=== PATIENT | female | born 1995 | race Caucasian/White ===

== ENCOUNTER 2016-09-04 22:43 | Emergency (ER) | payer OTHER ==
[~2016-09-04] VITALS: Ht 160 cm; Wt 47.0 kg
[~2016-09-04 22:43] MED LIST: CIPR500T4 PO; LORTA5 PO; MOBI15TA PO
[2016-09-04 22:44] VITALS: BP 128/76; PULSE 106; RESP 16; TEMP 98; O2SAT 97
[2016-09-05] MEDS ORDERED: SODIUM CHLOR 0.9% 1000 ML INJ 1,000 ML IV SCH (00:30)
[2016-09-05] MEDS ORDERED: SODIUM CHLORIDE 0.9% FLUSH 5 ML FLUSH IVF PRN (00:30)
--- NOTE | 2016-09-05 00:35 | RADRPT ---
EXAM DATE/TIME: 09/05/2016 00:31 [facility] COMPARISON: No previous studies available for comparison. INDICATIONS : Shortness of breath. MEDICAL HISTORY : None. SURGICAL HISTORY : None. ENCOUNTER: Initial ACUITY: 1 day PAIN SCORE: 0/10 LOCATION: Bilateral chest FINDINGS: A single view of the chest demonstrates the lungs to be symmetrically aerated without evidence of mas s, infiltrate or effusion. The cardiomediastinal contours are unremarkable. Osseous structures are intact. CONCLUSION: Normal examination. Navjot Barriga MD on September 05, 2016 at 0:33 Board Certified Radiologist. This report was verified electronically.
[2016-09-05 00:39] VITALS: RESP 19; O2SAT 99
[2016-09-05] MEDS ORDERED: VENTAER INH (00:41)
[2016-09-05] MEDS ORDERED: MONT5CHW5 CHEW (00:41)
[2016-09-05 00:47] LABS: BASOPHIL % 0.4 % (0.0-2.0); EOSINOPHIL # 0.7 TH/MM3 (0-0.4); EOSINOPHIL % 8.4 % (0.0-4.0); HEMATOCRIT 41.2 % (35.0-46.0); HEMO FLAGS DIFF FINAL; LYMPH % 43.3 % (9.0-44.0); LYMPHOCYTE # 3.4 TH/MM3 (1.0-4.8); MEAN CORPUSCULAR HEMOGLOBIN 30.3 PG (27.0-34.0); MEAN CORPUSCULAR HGB CONC 34.8 % (32.0-36.0); MONO % 9.3 % (0.0-8.0); NEUT % 38.6 % (16.0-70.0); PLATELET COUNT 170 TH/MM3 (150-450); RED BLOOD COUNT 4.73 MIL/MM3 (4.00-5.30); RED CELL DISTRIBUTION WIDTH 12.6 % (11.6-17.2); WHITE BLOOD COUNT 7.8 TH/MM3 (4.0-11.0)
[2016-09-05 01:12] LABS: ALT (GPT) 34 U/L (10-53); ANION GAP 5 MEQ/L (5-15); AST (GOT) 17 U/L (15-37); BICARBONATE 31.3 MEQ/L (21.0-32.0); BLOOD UREA NITROGEN 10 MG/DL (7-18); CHLORIDE 106 MEQ/L (98-107); GLOMERULAR FILTRATION RATE 77 ML/MIN (>89); SODIUM (NA) 142 MEQ/L (136-145)
[2016-09-05 01:16] LABS: BACTERIA, URINE RARE /hpf; BLOOD, URINE NEG (NEG); COMMENT (UR) CULT NOT INDICATED; CULTURE IF INDICATED CULT NOT INDICATED; GLUCOSE,URINE NEG (NEG); KETONE, URINE NEG (NEG); NITRITE,URINE NEG (NEG); SQUAMOUS EPITHELIAL CELL URINE 2 /hpf (0-5); URINE COLOR YELLOW (YELLW/STRAW)
[2016-09-05 01:20] LABS: ALKALINE PHOSPHATASE 69 U/L (45-117); TOTAL BILIRUBIN ADULT 0.2 MG/DL (0.2-1.0)
--- NOTE | 2016-09-05 01:46 | PD ---
HPI Chief Complaint: Dizziness Time Seen by Provider: 00:14 Travel History International Travel<30 days: No Contact w/Intl Traveler<30days: No Traveled to known affect area: No History of Present Illness HPI This is a 21-year-old female who presents to the emergency department reporting weakness, left been going on for several weeks, worse with exertion, improved with rest. She feels like she is not able to exert herself without getting short of breath and exhausted. She's had less energy than normal. She says over the past 2 days she started to have some intermittent chest tightness in the left side of her chest, nonradiating, associated with more shortness of breath and more fatigued. Patient has no primary care physician but does have an appointment to establish with one aunt have or eighth. Her mom has a history of iron deficiency. She does report she has heavy menstrual cycles. PFSH Past Medical History Asthma: Yes Diminished Hearing: No Respiratory: Yes (ASTHMA) ?: Not LMP: 08/25/16 : 0 Para: 0 Past Surgical History Tonsillectomy: Yes Social History Alcohol Use: No Tobacco Use: No Substance Use: No Allergies-Medications (Allergen,Severity, Reaction): Coded Allergies: Nut Tree (Verified Allergy, Severe, SOB, 09/04/16) Peanut (Verified Allergy, Severe, SOB, 09/04/16) Gluten (Verified Allergy, Intermediate, STOMACH PAIN SKIN BLISTERS, ) Egg Allergy (Unverified Allergy, Unknown, 09/04/16) Reported Meds & Prescriptions Reported Meds & Active Scripts Active Reported Ventolin Hfa 18 GM Inh (Albuterol Sulfate) 90 Mcg/Act Aer 2 Puff INH Q4H PRN Montelukast (Montelukast Sodium) 5 Mg Chew 5 Mg CHEW HS Review of Systems Except as stated in HPI: all other systems reviewed are Neg Physical Exam Narrative GENERAL: Pale, thin, chronically unwell-appearing SKIN: Warm and dry. HEAD: Atraumatic. Normocephalic. EYES: Pupils equal and round. No injection or drainage. ENT: Moist mucous membranes NECK: Trachea midline. CARDIOVASCULAR: Regular rate and rhythm. No murmur appreciated. RESPIRATORY: Clear to auscultation. Breath sounds equal bilaterally. GASTROINTESTINAL: Abdomen soft, non-tender, nondistended. MUSCULOSKELETAL: No obvious deformities. NEUROLOGICAL: Awake and alert. No obvious cranial nerve deficits. Moving all extremities. PSYCHIATRIC: Appropriate mood and affect; insight and judgment normal. Data Data Last Documented VS Vital Signs Date Time Temp Pulse Resp B/P Pulse Ox O2 Delivery O2 Flow Rate FiO2 09/05/16 00:39 19 99 Room Air 09/04/16 22:44 98.0 106 128/76 Orders Electrocardiogram (09/04/16 23:08) Complete Blood Count With Diff (09/05/16 00:21) Comprehensive Metabolic Panel (09/05/16 00:21) B-Type Natriuretic Peptide (09/05/16 00:21) D-Dimer (09/05/16 00:21) Troponin I (09/05/16 00:21) Urinalysis - C+S If Indicated (09/05/16 00:21) Iv Access Insert/Monitor (09/05/16 00:21) Ecg Monitoring (09/05/16 00:21) Oximetry (09/05/16 00:21) Oxygen Administration (09/05/16 00:21) Chest, Single Ap (09/05/16 00:21) Sodium Chloride 0.9% Flush (Ns Flush) (09/05/16 00:30) Thyroid Stimulating Hormone (09/05/16 00:21) Sodium Chlor 0.9% 1000 Ml Inj (Ns 1000 M (09/05/16 00:30) Ed Urine Pregnancytest Poc (09/05/16 00:25) Labs Laboratory Tests Test 09/05/16 09/05/16 00:29 01:06 White Blood Count 7.8 TH/MM3 Red Blood Count 4.73 MIL/MM3 Hemoglobin 14.3 GM/DL Hematocrit 41.2 % Mean Corpuscular Volume 87.0 FL Mean Corpuscular Hemoglobin 30.3 PG Mean Corpuscular Hemoglobin 34.8 % Concent Red Cell Distribution Width 12.6 % Platelet Count 170 TH/MM3 Mean Platelet Volume 11.0 FL Neutrophils (%) (Auto) 38.6 % Lymphocytes (%) (Auto) 43.3 % Monocytes (%) (Auto) 9.3 % Eosinophils (%) (Auto) 8.4 % Basophils (%) (Auto) 0.4 % Neutrophils # (Auto) 3.0 TH/MM3 Lymphocytes # (Auto) 3.4 TH/MM3 Monocytes # (Auto) 0.7 TH/MM3 Eosinophils # (Auto) 0.7 TH/MM3 Basophils # (Auto) 0.0 TH/MM3 CBC Comment DIFF FINAL Differential Comment D-Dimer Quantitative (PE/DVT) LESS THAN 0.19 MG/L FEU Sodium Level 142 MEQ/L Potassium Level 4.0 MEQ/L Chloride Level 106 MEQ/L Carbon Dioxide Level 31.3 MEQ/L Anion Gap 5 MEQ/L Blood Urea Nitrogen 10 MG/DL Creatinine 0.91 MG/DL Estimat Glomerular Filtration 77 ML/MIN Rate Random Glucose 81 MG/DL Calcium Level 8.5 MG/DL Total Bilirubin 0.2 MG/DL Aspartate Amino Transf 17 U/L (AST/SGOT) Alanine Aminotransferase 34 U/L (ALT/SGPT) Alkaline Phosphatase 69 U/L Troponin I LESS THAN 0.02 NG/ML B-Type Natriuretic Peptide LESS THAN 2 PG/ML Total Protein 6.9 GM/DL Albumin 4.0 GM/DL Thyroid Stimulating Hormone 2.600 uIU/ML 3rd Gen Urine Color YELLOW Urine Turbidity HAZY Urine pH 7.0 Urine Specific [place] 1.017 Urine Protein NEG mg/dL Urine Glucose (UA) NEG mg/dL Urine Ketones NEG mg/dL Urine Occult Blood NEG Urine Nitrite NEG Urine Bilirubin NEG Urine Urobilinogen LESS THAN 2.0 MG/DL Urine Leukocyte Esterase NEG Urine RBC LESS THAN 1 /hpf Urine WBC 1 /hpf Urine Squamous Epithelial 2 /hpf Cells Urine Amorphous Sediment RARE Urine Bacteria RARE /hpf Microscopic Urinalysis Comment CULT NOT INDICATED MDM Medical Decision Making Medical Screen Exam Complete: Yes Emergency Medical Condition: Yes Interpretation(s) Afebrile, mild tachycardia, normotensive No leukocytosis Electrolytes are reassuring Troponin is normal TSH is normal BNP is normal D-dimer is normal Chest x-ray: No acute process Differential Diagnosis Arrhythmia, acute coronary syndrome, pneumonia, pulmonary embolism, hypothyroidism, anemia Narrative Course This is a 21-year-old female who presents to the emergency department with worsening fatigue and generalized weakness. She is chronically ill-appearing on exam and she is very thin. She is placed on a monitor and an IV was established. Labs were obtained which were all reassuring including a normal chest x-ray. I don't suspect an acute emergent etiology of the patient's symptoms but I do suspect that she has an underlying chronic medical illness. She will follow up with her primary care physician in 2 weeks and I did provide her with copies of her blood work. I think she is safe for an outpatient evaluation. Diagnosis Primary Impression: Weakness Patient Instructions: General Instructions Additional Instructions: If you develop severe chest pain, shortness of breath, sweating, lightheadedness , dizziness or difficulty breathing return to the emergency department immediately. Followup with your primary care physician in 2-3 days if your symptoms are not resolved. Med/Other Pt SpecificInfo: No Change to Meds Disposition: 01 DISCHARGE HOME Condition: Stable Cindy Hogue MD Sep 05, 2016 01:46
--- NOTE | 2016-09-05 16:27 | EKG ---
Date Performed: 09/04/2016 Time Performed: 23:16:19 PTAGE: 21 years EKG: Sinus rhythm NORMAL ECG NO PREVIOUS TRACING DOCTOR: Lopez Houston Interpretating Date/Time 09/05/2016 16:25:23
== END 2016-09-05 02:09 | disposition home or self-care (01) ==
LOC: NEPE 22:43
DX: R53.1 Weakness (principal); R06.02 Shortness of breath; R07.89 Other chest pain
CPT/HCPCS: 71010; 80053; 81001; 83880; 84443; 84484; 84703; 85025; 85379; 93005; 99285; J7030

== ENCOUNTER 2017-09-16 16:07 | Emergency (ER) | payer OTHER ==
[~2017-09-16] VITALS: Ht 160 cm; Wt 55.0 kg
[~2017-09-16 16:07] MED LIST changes: -CIPR500T4 PO; -LORTA5 PO; -MOBI15TA PO; +MONT5CHW5 CHEW; +VENTAER INH
[2017-09-16 16:08] VITALS: BP 147/62; PULSE 88; RESP 18; TEMP 98.6; O2SAT 100
[2017-09-16 17:04] LABS: AUTOMATED NEUTROPHIL # 6.2 TH/MM3 (1.8-7.7); BASOPHIL % 0.4 % (0.0-2.0); EOSINOPHIL # 0.4 TH/MM3 (0-0.4); EOSINOPHIL % 4.4 % (0.0-4.0); HEMATOCRIT 41.2 % (35.0-46.0); HEMOGLOBIN 14.1 GM/DL (11.6-15.3); LYMPH % 20.9 % (9.0-44.0); LYMPHOCYTE # 1.9 TH/MM3 (1.0-4.8); MEAN CELL VOLUME 87.5 FL (80.0-100.0); MEAN CORPUSCULAR HGB CONC 34.2 % (32.0-36.0); MEAN PLATELET VOLUME 9.8 FL (7.0-11.0); MONO % 6.7 % (0.0-8.0); MONOCYTE # 0.6 TH/MM3 (0-0.9); NEUT % 67.6 % (16.0-70.0); PLATELET COUNT 215 TH/MM3 (150-450); RED BLOOD COUNT 4.71 MIL/MM3 (4.00-5.30); WHITE BLOOD COUNT 9.2 TH/MM3 (4.0-11.0)
--- NOTE | 2017-09-16 17:08 | RADRPT ---
EXAM DATE/TIME: 09/16/2017 16:34 [facility] COMPARISON: No previous studies available for comparison. INDICATIONS : Chest pain. MEDICAL HISTORY : Asthma. SURGICAL HISTORY : None. ENCOUNTER: Initial ACUITY: 1 day PAIN SCORE: 5/10 LOCATION: Bilateral chest FINDINGS: PA and lateral views of the chest demonstrate the lungs to be symmetrically aerated without evidence of mass, infiltrate or effusion. The cardiomediastinal contours are unremarkable. Osseous structure s are intact. CONCLUSION: No acute disease. Rogelio Fischer MD on September 16, 2017 at 17:06 Board Certified Radiologist. This report was verified electronically.
[2017-09-16 17:21] LABS: BLOOD UREA NITROGEN 12 MG/DL (7-18); CALCIUM 8.5 MG/DL (8.5-10.1); CHLORIDE 105 MEQ/L (98-107); CREATININE 0.81 MG/DL (0.50-1.00); GLOMERULAR FILTRATION RATE 87 ML/MIN (>89); GLUCOSE,RANDOM 95 MG/DL (74-106); MAGNESIUM 2.4 MG/DL (1.5-2.5); SODIUM (NA) 139 MEQ/L (136-145)
[2017-09-16 17:24] LABS: TROPONIN I LESS THAN 0.02 NG/ML (0.02-0.05)
--- NOTE | 2017-09-16 20:33 | PD ---
HPI Chief Complaint: Chest Pain Time Seen by Provider: 20:20 Travel History International Travel<30 days: No Contact w/Intl Traveler<30days: No Traveled to known affect area: No History of Present Illness HPI 22-year-old female here for evaluation of chest pain, shortness of breath, and palpitations. Patient reports his symptoms started yesterday. She had flulike symptoms about a week ago. She is having intermittent episodes of chest heaviness and sharp substernal chest pains associated with shortness of breath. She states that this is worse with exertion. She has history of asthma and takes albuterol. She denies any personal history of cardiac disease per she is a nonsmoker. No paresthesias or motor deficits. States that there is significant family history of cardiac disease in her father's side of the family. She is not on control. No recent travel or immobilization. PFSH Past Medical History Asthma: Yes Diminished Hearing: No Respiratory: Yes (ASTHMA) ?: Not : 0 Para: 0 Past Surgical History Tonsillectomy: Yes Social History Alcohol Use: No Tobacco Use: No Substance Use: No Allergies-Medications (Allergen,Severity, Reaction): Coded Allergies: ipratropium (Unverified Allergy, Severe, SOB, 09/16/17) tree nut (Unverified Allergy, Severe, SOB, 09/16/17) gluten (Unverified Allergy, Intermediate, STOMACH PAIN SKIN BLISTERS, ) Reported Meds & Prescriptions Reported Meds & Active Scripts Active Reported Ventolin Hfa 18 GM Inh (Albuterol Sulfate) 90 Mcg/Act Aer 2 Puff INH Q4H PRN Montelukast (Montelukast Sodium) 5 Mg Chew 5 Mg CHEW HS Review of Systems Except as stated in HPI: all other systems reviewed are Neg Physical Exam Narrative GENERAL: Well-developed, well-nourished, comfortable, no apparent distress. SKIN: Focused skin assessment warm/dry. HEAD: Atraumatic. Normocephalic. EYES: Pupils equal and round. No scleral icterus. No injection or drainage. ENT: Mucous membranes pink and moist. NECK: Trachea midline. No JVD. CARDIOVASCULAR: Regular rate and rhythm. No murmur appreciated. RESPIRATORY: No accessory muscle use. Clear to auscultation. Breath sounds equal bilaterally. GASTROINTESTINAL: Abdomen soft, non-tender, nondistended. MUSCULOSKELETAL: No obvious deformities. No clubbing. No cyanosis. No edema. NEUROLOGICAL: Awake and alert. No obvious cranial nerve deficits. Motor grossly within normal limits. Normal speech. PSYCHIATRIC: Appropriate mood and affect; insight and judgment normal. Data Data Last Documented VS Vital Signs Date Time Temp Pulse Resp B/P (MAP) Pulse Ox O2 Delivery O2 Flow Rate FiO2 09/16/17 20:42 92 18 122/69 (86) 98 Room Air 09/16/17 16:08 98.6 Orders Orders Electrocardiogram (09/16/17 16:17) Basic Metabolic Panel (Bmp) (09/16/17 16:17) Ckmb (Isoenzyme) Profile (09/16/17 16:17) Complete Blood Count With Diff (09/16/17 16:17) Magnesium (Mg) (09/16/17 16:17) Troponin I (09/16/17 16:17) Chest, Pa & Lat (09/16/17 16:17) D-Dimer (09/16/17 20:23) Ed Urine Pregnancytest Poc (09/16/17 20:26) Labs Laboratory Tests Test 09/16/17 16:40 09/16/17 20:45 White Blood Count 9.2 TH/MM3 Red Blood Count 4.71 MIL/MM3 Hemoglobin 14.1 GM/DL Hematocrit 41.2 % Mean Corpuscular Volume 87.5 FL Mean Corpuscular Hemoglobin 30.0 PG Mean Corpuscular Hemoglobin Concent 34.2 % Red Cell Distribution Width 13.0 % Platelet Count 215 TH/MM3 Mean Platelet Volume 9.8 FL Neutrophils (%) (Auto) 67.6 % Lymphocytes (%) (Auto) 20.9 % Monocytes (%) (Auto) 6.7 % Eosinophils (%) (Auto) 4.4 % Basophils (%) (Auto) 0.4 % Neutrophils # (Auto) 6.2 TH/MM3 Lymphocytes # (Auto) 1.9 TH/MM3 Monocytes # (Auto) 0.6 TH/MM3 Eosinophils # (Auto) 0.4 TH/MM3 Basophils # (Auto) 0.0 TH/MM3 CBC Comment DIFF FINAL Differential Comment Blood Urea Nitrogen 12 MG/DL Creatinine 0.81 MG/DL Random Glucose 95 MG/DL Calcium Level 8.5 MG/DL Magnesium Level 2.4 MG/DL Sodium Level 139 MEQ/L Potassium Level 3.8 MEQ/L Chloride Level 105 MEQ/L Carbon Dioxide Level 28.0 MEQ/L Anion Gap 6 MEQ/L Estimat Glomerular Filtration Rate 87 ML/MIN Total Creatine Kinase 84 U/L Troponin I LESS THAN 0.02 NG/ML D-Dimer Quantitative (PE/DVT) LESS THAN 0.19 MG/L FEU [facility] Medical Decision Making Medical Screen Exam Complete: Yes Emergency Medical Condition: Yes Medical Record Reviewed: Yes Interpretation(s) EKG: Sinus, rate 76, normal axis, normal intervals, no acute ischemic abnormality. Differential Diagnosis ACS, pneumothorax, pericarditis, PE, pneumonia, musculoskeletal pain Narrative Course Vital signs show heart rate 88, blood pressure 147/62, pulse ox 100% on room air , oral temp of 98.6F CBC is unremarkable. BMP is unremarkable. Cardiac enzymes are negative. D-dimer is negative. Urine is negative. Chest x-ray: No acute disease. Patient was made aware of all findings. She is resting comfortably. I do not believe her symptoms are cardiopulmonary in nature. I believe she is stable for discharge home with outpatient follow-up with her primary care physician this week. She was advised on when to return to the emergency department. She verbalizes understanding and agreement with plan. Diagnosis Primary Impression: Atypical chest pain Referrals: Primary Care Physician 3 days Additional Instructions: Follow-up with your primary care physician this week. Return to the emergency department for worsening symptoms or any other concerns. Disposition: 01 DISCHARGE HOME Condition: Stable Jose Santiago MD Sep 16, 2017 20:33
[2017-09-16 20:42] VITALS: BP 122/69; PULSE 92; RESP 18; O2SAT 98
--- NOTE | 2017-09-17 20:29 | EKG ---
Date Performed: 09/16/2017 Time Performed: 16:48:57 PTAGE: 22 years EKG: Sinus rhythm NORMAL ECG PREVIOUS TRACING : 09/04/2016 23.16 Since the prior tracing, there has been no significant muhammad DOCTOR: Cornelius Singh Interpretating Date/Time 09/17/2017 20:21:52
== END 2017-09-16 22:21 | disposition home or self-care (01) ==
LOC: NEPD 16:07
DX: R07.89 Other chest pain (principal); J45.909 Unspecified asthma, uncomplicated; Z79.899 Other long term (current) drug therapy; Z82.49 Family history of ischemic heart disease and other diseases of the circulatory system
CPT/HCPCS: 71046; 80048; 82550; 83735; 84484; 84703; 85025; 85379; 93005; 99285